=== PATIENT | female | born 1975 | race Caucasian/White ===

== ENCOUNTER → 2024-09-19 12:54 | Outpatient (REF) | payer OTHER, SELFPAY | LOC: HWRAD 12:54 | PROVIDERS: ATTENDING PHYSICIAN Specialist; FAMILY PHYSICIAN Nurse Practitioner Adult Health; REFERRING PHYSICIAN Internal Medicine Rheumatology | DX: R80.9 Proteinuria, unspecified (principal) | CPT/HCPCS: 76770 ==

== ENCOUNTER → 2025-01-21 07:26 | Outpatient (REF) | payer OTHER, SELFPAY | LOC: MRI 3T 07:26 | PROVIDERS: ATTENDING PHYSICIAN Podiatrist; FAMILY PHYSICIAN Nurse Practitioner Adult Health | DX: S93.491A Sprain of other ligament of right ankle, initial encounter (principal) | CPT/HCPCS: 73721 ==

== ENCOUNTER → 2025-04-30 07:21 | Outpatient (REF) | payer OTHER, SELFPAY | LOC: HWWDC 07:21 | PROVIDERS: ATTENDING PHYSICIAN Obstetrics & Gynecology Gynecology; FAMILY PHYSICIAN Nurse Practitioner Adult Health | DX: Z12.31 Encounter for screening mammogram for malignant neoplasm of breast (principal) | CPT/HCPCS: 77063; 77067 ==

== ENCOUNTER → 2025-05-21 07:47 | Outpatient (REF) | payer OTHER, SELFPAY | LOC: WDC 07:47 | PROVIDERS: ATTENDING PHYSICIAN Obstetrics & Gynecology Gynecology; FAMILY PHYSICIAN Nurse Practitioner Adult Health | DX: R92.2 Inconclusive mammogram (principal) | CPT/HCPCS: 76641 ==